=== PATIENT | male | born 1990 | race Asian ===

== ENCOUNTER → 2021-05-01 | Outpatient (CLI) | payer OTHER ==
[2021-05-02 06:06] LABS: RUBEOLA (MEASLES) IGG 86.9 AU/mL (Immune >16.4)
== END | disposition home or self-care (01) ==
LOC: LABPV 11:58
PROVIDERS: ATTEND Internal Medicine
DX: Z02.1 Encounter for pre-employment examination (principal)
CPT/HCPCS: 86706; 86735; 86762; 86765; 86787

== ENCOUNTER 2021-07-07 10:28 | Emergency (ER) | payer OTHER ==
[~2021-07-07] VITALS: Ht 175.3 cm; Wt 94.1 kg
[2021-07-07 10:44] VITALS: BP 136/73
[2021-07-07] MEDS ORDERED: IBUPROFEN 800 MG TABLET PO ONE (11:30)
[2021-07-07] MEDS ORDERED: LIDOCAINE 5% TRANSDERMAL PATCH TD ONE (12:30)
== END 2021-07-07 14:00 | disposition home or self-care (01) ==
LOC: EMS 10:31
DX: R07.89 Other chest pain (principal)
CPT/HCPCS: 71046; 99283; G0238

== ENCOUNTER 2021-08-04 09:49 | Emergency (ER) | payer OTHER ==
[~2021-08-04] VITALS: Ht 175.3 cm; Wt 95.0 kg
[2021-08-04 13:26] VITALS: BP 127/76
== END 2021-08-04 14:04 | disposition home or self-care (01) ==
LOC: EMS 09:55
DX: S80.02XA Contusion of left knee, initial encounter (principal); F41.9 Anxiety disorder, unspecified; F32.9 Major depressive disorder, single episode, unspecified; Y04.2XXA Assault by strike against or bumped into by another person, initial encounter; Y93.89 Activity, other specified; Y92.89 Other specified places as the place of occurrence of the external cause; Y99.0 Civilian activity done for income or pay
CPT/HCPCS: 70486; 99284; 73562-TC; Z7502